=== PATIENT | female | born 1950 | race Two or more races ===

== ENCOUNTER → 2017-06-27 | Outpatient (CLI) | payer OTHER ==
[~2017-06-27] MED LIST: CRESTOR10 MG PO; DIOVAN HCT 160-1 TA1 PO; GLIPIZIDE5 MG PO; JANUVIA100 MG PO; OMEGA-31000 MG PO; TRICOR145 MG PO; ZOLOFT50 MG
== END | disposition home or self-care (01) ==
LOC: LAB 09:24
DX: C73 Malignant neoplasm of thyroid gland (principal); E89.0 Postprocedural hypothyroidism

== ENCOUNTER 2017-07-06 09:32 | Outpatient (CLI) | payer OTHER | END 2017-07-06 09:34 | disposition home or self-care (01) | LOC: LAB 09:32 | DX: C73 Malignant neoplasm of thyroid gland (principal) ==

== ENCOUNTER 2017-07-12 09:19 | Outpatient (CLI) | payer OTHER | END 2017-07-12 10:21 | disposition home or self-care (01) | LOC: LAB 09:19 | DX: D64.89 Other specified anemias (principal); E11.65 Type 2 diabetes mellitus with hyperglycemia; C18.6 Malignant neoplasm of descending colon; C50.412 Malignant neoplasm of upper-outer quadrant of left female breast ==

== ENCOUNTER 2017-07-22 11:46 | Outpatient (CLI) | payer OTHER | END 2017-07-22 12:00 | disposition home or self-care (01) | LOC: LAB 11:46 | DX: C73 Malignant neoplasm of thyroid gland (principal); E89.0 Postprocedural hypothyroidism ==

== ENCOUNTER → 2017-07-25 | Outpatient (CLI) | payer OTHER | END | disposition home or self-care (01) | LOC: NUCLEAR 15:00 | DX: C73 Malignant neoplasm of thyroid gland (principal) | CPT/HCPCS: 78018; 78020; A9528 ==

== ENCOUNTER 2017-08-05 09:00 | Outpatient (CLI) | payer OTHER | END 2017-08-05 09:14 | disposition home or self-care (01) | LOC: LAB 09:00 | DX: D68.8 Other specified coagulation defects (principal); Z01.812 Encounter for preprocedural laboratory examination; Z13.6 Encounter for screening for cardiovascular disorders; E78.2 Mixed hyperlipidemia ==

== ENCOUNTER 2017-08-05 09:28 | Outpatient (CLI) | payer OTHER | END 2017-08-05 17:00 | disposition home or self-care (01) | LOC: RAD 09:28 | DX: M17.0 Bilateral primary osteoarthritis of knee (principal); M16.0 Bilateral primary osteoarthritis of hip; S33.5XXA Sprain of ligaments of lumbar spine, initial encounter; S13.4XXA Sprain of ligaments of cervical spine, initial encounter; S33.8XXA Sprain of other parts of lumbar spine and pelvis, initial encounter ==

== ENCOUNTER 2017-09-03 09:13 | Outpatient (CLI) | payer OTHER | END 2017-09-03 09:16 | disposition home or self-care (01) | LOC: LAB 09:13 | DX: C73 Malignant neoplasm of thyroid gland (principal); E89.0 Postprocedural hypothyroidism ==

== ENCOUNTER 2017-10-01 07:56 | Emergency (ER) | payer OTHER ==
[~2017-10-01] VITALS: Ht 152.4 cm; Wt 88.5 kg
== END 2017-10-01 12:34 | disposition home or self-care (01) ==
LOC: ER 07:56
DX: S00.83XA Contusion of other part of head, initial encounter (principal); S40.011A Contusion of right shoulder, initial encounter; W18.09XA Striking against other object with subsequent fall, initial encounter; Y93.89 Activity, other specified; Y92.018 Other place in single-family (private) house as the place of occurrence of the external cause; Y99.8 Other external cause status

== ENCOUNTER 2017-12-09 07:27 | Outpatient (CLI) | payer OTHER | END 2017-12-09 07:45 | disposition home or self-care (01) | LOC: LAB 07:27 | DX: N18.3 Chronic kidney disease, stage 3 (moderate) (principal); E11.21 Type 2 diabetes mellitus with diabetic nephropathy; D63.1 Anemia in chronic kidney disease; N30.00 Acute cystitis without hematuria; E78.4 Other hyperlipidemia; E03.8 Other specified hypothyroidism ==

== ENCOUNTER 2017-12-09 08:19 | Outpatient (CLI) | payer OTHER | END 2017-12-09 08:23 | disposition home or self-care (01) | LOC: SONOGRAMA 08:19 → MAMO-SONO 09:00 | DX: R10.84 Generalized abdominal pain (principal); N18.3 Chronic kidney disease, stage 3 (moderate); R31.9 Hematuria, unspecified ==

== ENCOUNTER 2018-02-25 08:26 | Outpatient (CLI) | payer OTHER | END 2018-02-25 08:30 | disposition home or self-care (01) | LOC: LAB 08:26 | DX: I10 Essential (primary) hypertension (principal); E11.9 Type 2 diabetes mellitus without complications; E03.8 Other specified hypothyroidism ==

== ENCOUNTER 2018-04-04 10:17 | Outpatient (CLI) | payer OTHER | END 2018-04-04 10:20 | disposition home or self-care (01) | LOC: LAB 10:17 | DX: C73 Malignant neoplasm of thyroid gland (principal); E89.0 Postprocedural hypothyroidism ==

== ENCOUNTER 2018-05-09 09:49 | Outpatient (CLI) | payer OTHER | END 2018-05-09 09:54 | disposition home or self-care (01) | LOC: LAB 09:49 | DX: M17.0 Bilateral primary osteoarthritis of knee (principal); E89.0 Postprocedural hypothyroidism; E11.9 Type 2 diabetes mellitus without complications; I10 Essential (primary) hypertension; Z85.3 Personal history of malignant neoplasm of breast; Z85.038 Personal history of other malignant neoplasm of large intestine; Z85.850 Personal history of malignant neoplasm of thyroid; E78.49 Other hyperlipidemia ==

== ENCOUNTER 2018-07-10 08:31 | Outpatient (CLI) | payer OTHER | END 2018-07-10 12:30 | disposition home or self-care (01) | LOC: LAB 08:31 | DX: C73 Malignant neoplasm of thyroid gland (principal); E89.0 Postprocedural hypothyroidism ==

== ENCOUNTER 2018-07-10 09:50 | Outpatient (CLI) | payer OTHER | END 2018-07-10 17:00 | disposition home or self-care (01) | LOC: MRI 09:50 | DX: C73 Malignant neoplasm of thyroid gland (principal); M25.561 Pain in right knee | CPT/HCPCS: 73721 ==

== ENCOUNTER 2018-08-16 09:08 | Outpatient (CLI) | payer OTHER | END 2018-08-16 09:53 | disposition home or self-care (01) | LOC: LAB 09:08 | DX: M17.0 Bilateral primary osteoarthritis of knee (principal); Z85.9 Personal history of malignant neoplasm, unspecified; Z72.89 Other problems related to lifestyle ==

== ENCOUNTER 2018-10-16 06:00 | Day surgery (SDC) | payer OTHER ==
[~2018-10-16 06:00] MED LIST changes: +ATORVASTATIN CA10 MG PO; +BACLOFEN10 MG PO; +BENADRYL25 MG PO; +CLONAZEPAM2 M1 PO; +LOSARTAN-HCTZ1 EAC1 PO; +NAMENDA5 MG PO; +PROTONIX40 MG PO; +SYNTHROID200 MCG PO; +TAMOXIFEN CITRA20 MG PO
[2018-10-16] MEDS ORDERED: TRAM1TAB98 PO (08:56)
[2018-10-16] MEDS ORDERED: DUI500 PO (08:56)
== END 2018-10-16 14:35 | disposition home or self-care (01) ==
LOC: CIR.AMB 06:00
DX: M23.321 Other meniscus derangements, posterior horn of medial meniscus, right knee (principal); M23.341 Other meniscus derangements, anterior horn of lateral meniscus, right knee; M23.351 Other meniscus derangements, posterior horn of lateral meniscus, right knee; M17.11 Unilateral primary osteoarthritis, right knee; M65.861 Other synovitis and tenosynovitis, right lower leg

== ENCOUNTER 2018-10-30 08:04 | Outpatient (CLI) | payer OTHER ==
[~2018-10-30 08:04] MED LIST changes: +DUI500 PO; +TRAM1TAB98 PO
== END 2018-10-30 08:11 | disposition home or self-care (01) ==
LOC: LAB 08:04
DX: E03.8 Other specified hypothyroidism (principal); E55.9 Vitamin D deficiency, unspecified; E78.2 Mixed hyperlipidemia; I10 Essential (primary) hypertension; E88.81 Metabolic syndrome and other insulin resistance

== ENCOUNTER 2018-11-25 08:02 | Outpatient (CLI) | payer OTHER | END 2018-11-25 08:07 | disposition home or self-care (01) | LOC: LAB 08:02 | DX: C73 Malignant neoplasm of thyroid gland (principal); E89.0 Postprocedural hypothyroidism ==

== ENCOUNTER → 2018-12-18 10:32 | Outpatient (CLI) | payer OTHER | END | disposition home or self-care (01) | LOC: LAB 10:32 | DX: E03.8 Other specified hypothyroidism (principal); N18.3 Chronic kidney disease, stage 3 (moderate); E11.21 Type 2 diabetes mellitus with diabetic nephropathy; D63.1 Anemia in chronic kidney disease; N30.00 Acute cystitis without hematuria ==